=== PATIENT | female | born 1950 | race Caucasian/White ===

== ENCOUNTER 2023-06-05 05:20 | Day surgery (SDC) | payer BC ==
[~2023-06-05] VITALS: Ht 167.6 cm; Wt 76.2 kg
[2023-06-05] MEDS ORDERED: ACETAMINOPHEN 500 MG TABLET ONE (05:36)
[2023-06-05 06:13] VITALS: O2SAT 99
[2023-06-05] MEDS ORDERED: ceFAZolin SODIUM 2 GM in D5W 100 ML IV ONE (07:00)
[2023-06-05] MEDS ORDERED: ACETAMINOPHEN 500 MG TABLET PO ONE (07:00)
[2023-06-05] MEDS ORDERED: ePHEDrine sulfate 50 MG/ML VIAL ONE (07:10)
[2023-06-05] MEDS ORDERED: BUPIVACAINE /PF 0.25% 30 ML VIAL INJ ONE (07:10)
[2023-06-05] MEDS ORDERED: ONDANSETRON HCL 4 MG/2 ML VIAL ONE (07:10)
[2023-06-05] MEDS ORDERED: LR 1,000 ML IV.SOLN IV ONE (07:10)
[2023-06-05] MEDS ORDERED: NS 100 ML BAG ONE (07:10)
[2023-06-05] MEDS ORDERED: LIDOCAINE 2%, 20 ML MDV ONE (07:10)
[2023-06-05] MEDS ORDERED: PROPOFOL 200MG/ 20ML VIAL (DIPRIVAN) IV ONE (07:10)
[2023-06-05] MEDS ORDERED: fentaNYL CITRATE/PF 100 MCG/2 ML AMP ONE ×3 (07:10→09:54)
[2023-06-05] MEDS ORDERED: NS IRRIG SOLN 1000 ML IR ONE (07:10)
[2023-06-05] MEDS ORDERED: SUGAMMADEX SODIUM 200 MG/2 ML VIAL IV ONE (07:10)
[2023-06-05] MEDS ORDERED: MIDAZOLAM HCL 2 MG/2 ML VIAL (VERSED) ONE ×2 (07:10→07:38)
[2023-06-05] MEDS ORDERED: ROCURONIUM BROMIDE 10 MG/ML (ZEMURON) ONE (07:10)
[2023-06-05] MEDS ORDERED: SEVOFLURANE 15 MIN GAS INH ONE (07:10)
[2023-06-05] MEDS ORDERED: LR 1,000 ML IV ONE (08:15)
[2023-06-05] MEDS ORDERED: fentaNYL CITRATE/PF 100 MCG/2 ML AMP IVP PRN (08:15)
[2023-06-05] MEDS ORDERED: HYDROmorphone 1 MG/ML INJ. CARTRIDGE IVP PRN ×2 (08:15)
[2023-06-05] MEDS ORDERED: ONDANSETRON HCL 4 MG/2 ML VIAL IVP PRN (08:15)
[2023-06-05] MEDS ORDERED: HYDROmorphone 1 MG/ML INJ. CARTRIDGE ONE (09:38)
[2023-06-05] MEDS ORDERED: fentaNYL CITRATE/PF 100 MCG/2 ML AMP IVP ONE (10:00)
[2023-06-05 12:55] VITALS: BP_SYST 137; PULSE 88; RESP 18; TEMP 98
== END 2023-06-05 13:04 | disposition home or self-care (01) ==
LOC: SMU 05:20 → SDS 05:20
PROVIDERS: ATTEND Orthopaedic Surgery Sports Medicine
DX: M19.011 Primary osteoarthritis, right shoulder (principal); S46.811A Strain of other muscles, fascia and tendons at shoulder and upper arm level, right arm, initial encounter; G89.29 Other chronic pain; K21.9 Gastro-esophageal reflux disease without esophagitis; Z88.1 Allergy status to other antibiotic agents; X58.XXXA Exposure to other specified factors, initial encounter; Y93.89 Activity, other specified; Y92.89 Other specified places as the place of occurrence of the external cause; Y99.8 Other external cause status
CPT/HCPCS: 87081; 29824; 29826; J3490 ×2; J2001; J3465; J2405; J2704; J3010; J1170; J7060; J7120